=== PATIENT | female | born 1945 | race Caucasian/White ===

== ENCOUNTER 2024-03-13 03:36 | Emergency (ER) | payer MEDICARE, SELFPAY ==
[2024-03-13 03:39] VITALS: BP 167/97; PULSE 73; RESP 15; TEMP 36.7; O2SAT 99; BMI 27.4
--- NOTE | 2024-03-13 03:42 | ECG_ITS ---
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 Measurements Intervals [place] Rate: 71 P: 49 NH: 165 QRS: -24 QRSD: 83 T: 56 QT: 399 QTc: 434 Interpretive Statements SINUS RHYTHM BORDERLINE LEFT AXIS DEVIATION [QRS AXIS < -20] No previous ECG available for comparison Electronically Signed On 03-13-2024 6:59:27 CDT by Yovany Victoria M.D. [id number]
--- NOTE | 2024-03-13 03:49 | CTR_ITS ---
PROCEDURE INFORMATION: Exam: CT Head Without Contrast Exam date and time: 03/13/2024 4:14 AM Age: 78 years old Clinical indication: Altered mental status/memory loss; Additional info: AMS confusion TECHNIQUE: Imaging protocol: Computed tomography of the head without contrast. Radiation optimization: All CT scans at this facility use at least one of these dose optimization techniques: automated exposure control; mA and/or kV adjustment per patient size (includes targeted exams where dose is matched to clinical indication); or iterative reconstruction. COMPARISON: No relevant prior studies available. RADIATION DOSE METRICS: Total DLP (mGy-cm): 1139.76 FINDINGS: Brain: No hemorrhage. Periventricular white matter lucency represents atherosclerotic encephalopathic changes. No mass effect. Cerebral ventricles: No ventriculomegaly. Ventricular prominence proportionate to the degree of atrophy observed. Paranasal sinuses: Visualized sinuses are unremarkable. No fluid levels. Mastoid air cells: Visualized mastoid air cells are well aerated. Bones: Unremarkable. No acute fracture. Soft tissues: Unremarkable. CT/CT head wo con* [id number] IMPRESSION: No acute intracranial abnormality.
--- NOTE | 2024-03-13 03:49 | XRR_ITS ---
PROCEDURE INFORMATION: Exam: XR Chest Exam date and time: 03/13/2024 4:00 AM Age: 78 years old Clinical indication: Other: AMS TECHNIQUE: Imaging protocol: Radiologic exam of the chest. Views: 1 view. COMPARISON: No relevant prior studies available. FINDINGS: Lungs: Unremarkable. No consolidation. Pleural spaces: Unremarkable. No pleural effusion. No pneumothorax. Heart/Mediastinum: Unremarkable. No cardiomegaly. Bones/joints: Unremarkable. XR/XR chest 1V portable [id number] IMPRESSION: No acute findings.
--- NOTE | 2024-03-13 03:51 | ED_ITS ---
HPI - Altered Mental Status 2 General: Chief Complaint: Altered Mental Status Stated Complaint: AMS Time Seen by Provider: 03/13/24 03:41 History of Present Illness: Brought in by EMS for altered mental status. EMS stated that the police had to spike strip her car because she was failing to yield and driving erratic. Patient does not know where she is or where she lives other than she is in the hospital and she [place] [address] near [place]. She says she has 2 sons and they take care of everything. She does not know her address. The year, the month, the season, patient when asked about surgical history raised her shirt and showed what appeared to be an appendectomy scar, she says she does not go to the doctors so therefore she takes no medicines and has no allergies. Review of Systems 2 General: Reports: 10 or more systems reviewed and unremarkable except in HPI and below Physical Exam 2 Const: COMMON NORMALS: no acute distress, average body habitus, healthy appearing, alert and well nourished HENMT: COMMON NORMALS: normocephalic, atraumatic, hearing grossly normal bilaterally, external ears normal, Normal external nose present and moist oral mucous membranes HEAD & SCALP: normocephalic and atraumatic NOSE: Normal external nose present EXTERNAL EAR: Yes external ears normal Neck/C-Spine: COMMON NORMALS: full ROM, no lymphadenopathy, supple, no meningeal signs, no JVD and Thyroid normal THYROID: Thyroid normal Chest: COMMONS NORMALS: normal inspection of the chest and normal palpation of entire chest wall Resp: COMMON NORMALS: normal respiratory effort, No retractions, No use of accessory muscles and clear to auscultation bilaterally AUSCULTATION: clear to auscultation bilaterally Cardio: COMMON NORMALS: no JVD, regular rate, regular rhythm, S1 normal heart sound present, S2 normal heart sound present, No gallops present (Cardio), No clicks present (Cardio) and No murmurs present (Cardio) RATE: regular rate RHYTHM: regular rhythm HEART SOUNDS: S1 normal heart sound present and S2 normal heart sound present GI: COMMON NORMALS: Normal to inspection, nondistended, normoactive bowel sounds present, Soft to palpation, non-tender, No hepatosplenomegaly present and no masses PALPATION: Yes Soft to palpation and Yes No hepatosplenomegaly present Extremity: NARRATIVE EXTREMITY EXAM: Negative lower extremity pitting edema bilaterally Neuro: SENSORIUM/ORIENTATION: Yes alert MENINGEAL SIGNS: Yes no meningeal signs Course 2 Vital Signs: Vital signs: Vital Signs Temperature 98.1 F 03/13/24 03:39 Pulse Rate 77 03/13/24 07:12 Respiratory Rate 15 03/13/24 03:39 Blood Pressure 167/97 03/13/24 07:12 Pulse Oximetry 99 03/13/24 07:12 Oxygen Delivery Me thod Room Air 03/13/24 03:39 MDM - Altered Mental Status Medical Decision Making Patient was in the process of being worked up for altered mental status they essentially everything was negative, family members did come and said they wanted to take her home. Is thought that the patient has more dementia than assumed. Patient be discharged to family. Differential Diagnosis Likely altered mental status Medical Records I reviewed the patient's medical records. Lab Data I reviewed the patient's lab results. 03/13/24 04:05 03/13/24 06:51 Radiology Impressions Chest X-Ray 03/13/24 03:49 IMPRESSION: No acute findings. Head CT 03/13/24 03:49 IMPRESSION: No acute intracranial abnormality. Laboratory Results WBC 4.82 10^3/uL (3.29-11.43) 03/13/24 04:05 RBC 4.06 10^6/uL (3.85-5.65) 03/13/24 04:05 Hgb 12.20 g/dL (11.27-16.99) 03/13/24 04:05 Hct 36.4 % (36-47) 03/13/24 04:05 MCV 89.7 fl (85-98) 03/13/24 04:05 MCH 30.0 pg (27-33) 03/13/24 04:05 MCHC 33.5 g/dL (30-55) 03/13/24 04:05 RDW 13.0 % (12.1-15.1) 03/13/24 04:05 Plt Count 193 10^3/cmm (157-399) 03/13/24 04:05 MPV 10.4 fL (7.4-10.4) 03/13/24 04:05 Neut % (Auto) 72.7 % 03/13/24 04:05 Lymph % (Auto) 20.1 % 03/13/24 04:05 [place] % (Auto) 6.2 % 03/13/24 04:05 Eos % (Auto) 0.2 % 03/13/24 04:05 Baso % (Auto) 0.4 % 03/13/24 04:05 Neut # (Auto) 3.50 10^3/uL (1.8-7.7) 03/13/24 04:05 Lymph # (Auto) 1.0 10^3/uL (0.8-4.8) 03/13/24 04:05 [place] # (Auto) 0.3 10^3/uL (0.2-0.9) 03/13/24 04:05 Eos # (Auto) 0.0 10^3/uL (0.0-0.8) 03/13/24 04:05 Baso # (Auto) 0.0 10^3/uL (0.0-0.1) 03/13/24 04:05 Nucleated RBC % (auto) 0 % 03/13/24 04:05 Nucleated RBCs # 0.0 /100WBC 03/13/24 04:05 Sodium 137 mmol/L (136-145) 03/13/24 06:51 Potassium 4.4 mmol/L (3.5-5.1) 03/13/24 06:51 Chloride 105 mmol/L (98-107) 03/13/24 06:51 Carbon Dioxide 19 mmol/L (22-29) L 03/13/24 06:51 Anion Gap 17.4 (5-19) 03/13/24 06:51 BUN 22 mg/dL (8-23) 03/13/24 06:51 Creatinine 1.7 mg/dL (0.5-0.9) H 03/13/24 06:51 GFR Calculation Not Reportable 03/13/24 06:51 Glucose 100 mg/dL (65-115) 03/13/24 06:51 Calculated Osmolality 287 mOsm/kg (285-295) 03/13/24 06:51 Calcium 8.7 mg/dL (8.5-10.5) 03/13/24 06:51 Magnesium 2.4 mg/dL (1.7-2.3) H 03/13/24 04:05 Total Bilirubin 0.5 mg/dL (0.15-1.2) 03/13/24 04:05 AST 13 U/L (0-32) 03/13/24 04:05 ALT 5 U/L (0-33) 03/13/24 04:05 Alkaline Phosphatase 122 U/L (35-105) H 03/13/24 04:05 C-Reactive Protein < 3.0 mg/L (0.0-4.9) 03/13/24 04:05 Total Protein 7.8 g/dL (6.6-8.7) 03/13/24 04:05 Albumin 4.4 g/dL (3.5-5.2) 03/13/24 04:05 Globulin 3.4 g/dL (1.3-4.6) 03/13/24 04:05 TSH 7.09 uIU/mL (0.27-4.20) H 03/13/24 04:05 Free T4 1.35 ng/dL (0.82-1.77) 03/13/24 04:05 Urine Color Yellow (Yellow) 03/13/24 04:05 Urine Appearance Clear (CLEAR) 03/13/24 04:05 Urine pH 5 (5-7) 03/13/24 04:05 Ur Specific [place] 1.015 (1.005-1.030) 03/13/24 04:05 Urine Protein Neg (Negative) 03/13/24 04:05 Urine Glucose (UA) Norm (Normal) 03/13/24 04:05 Urine Ketones Negative (Negative) 03/13/24 04:05 Urine Blood Neg (Negative) 03/13/24 04:05 Urine Nitrate Negative (Negative) 03/13/24 04:05 Urine Bilirubin Neg (Negative) 03/13/24 04:05 Urine Urobilinogen Neg mg/dL (Negative) 03/13/24 04:05 Ur Leukocyte Esterase Negative (Negative) 03/13/24 04:05 Salicylates 0.3 mg/dL (3-10) L 03/13/24 04:05 Urine Opiates Screen Negative ng/mL (Negative) 03/13/24 04:05 Acetaminophen < 5.0 ug/mL (10-30) L 03/13/24 04:05 Ur Barbiturates Screen Negative ng/mL (Negative) 03/13/24 04:05 Ur Phencyclidine Scrn Negative ng/mL (Negative) 03/13/24 04:05 Ur Amphetamines Screen Negative ng/mL (Negative) 03/13/24 04:05 U Benzodiazepines Scrn Negative ng/mL (Negative) 03/13/24 04:05 Urine Cocaine Screen Negative ng/mL (Negative) 03/13/24 04:05 U Marijuana (THC) Screen Negative ng/mL (Negative) 03/13/24 04:05 Ethyl Alcohol < 10 mg/dL (0-10) 03/13/24 04:05 Influenza Type A Ag negative (Negative) 03/13/24 04:15 Influenza Type B Ag negative (Negative) 03/13/24 04:15 RSV Antigen Negative (Negative) 03/13/24 04:15 SARS-CoV-2 Ag (Rapid) negative (Negative) 03/13/24 04:15 All radiology interpretation(s) finalized by discharge EKG Data EKG 1: I personally reviewed and interpreted this EKG as follows: EKG interpretation date: 03/13/24 EKG interpretation time: 03:42 Prior EKG tracings: not available for review Interpretation: Ventricular rate 71 bpm, NM interval 165, QRS duration 83, QTc of 421, sinus rhythm Discharge Plan Discharge Patient Disposition: Home Clinical Impression: Dementia Qualifiers: Dementia type: unspecified type Dementia severity: moderate Dementia behavioral or psychological symptom: without behavioral, psychotic, or mood disturbance or anxiety Qualified Code(s): F03.B0 - Unspecified dementia, moderate, without behavioral disturbance, psychotic disturbance, mood disturbance, and anxiety Condition: Stable Discharge Orders: Discharge ED (Routine); Ordered 03/13/24 Ordered By: Tyson Huggins Patient Instructions: Dementia (ED), Altered Mental Status (ED) Activity Restrictions/Additional Instructions: Please follow up with your PCP in 7 - 10 days for further evaluation and testing. Coding Level of Care Code ED [employer] Mdm Architect for Bruna Castillo
[2024-03-13 04:09] LABS: Basophils % 0.4 %; Eosinophils % 0.2 %; Hematocrit 36.4 % (36-47); Lymphocytes % 20.1 %; Mean Corpuscular HGB Conc 33.5 g/dL (30-55); Mean Corpuscular Volume 89.7 fl (85-98); Mean Platelet Volume 10.4 fL (7.4-10.4); Monocytes # 0.3 10^3/uL (0.2-0.9); Monocytes % 6.2 %; Neutrophils % 72.7 %; Nucleated Red Blood Cells % 0 %; Platelet Count 193 10^3/cmm (157-399); Red Blood Count 4.06 10^6/uL (3.85-5.65); White Blood Count 4.82 10^3/uL (3.29-11.43)
[2024-03-13 04:29] LABS: Add Urine Microscopic? NO; Charge for UA Resulting for Rev
[2024-03-13 04:31] LABS: Bilirubin Urine Neg (Negative); Blood Urine Neg (Negative); Glucose Urine UA Norm (Normal); Ketones Urine Negative (Negative); Leukocyte Esterase Urine Negative (Negative); Nitrate Urine Negative (Negative); Protein Urine Neg (Negative); Specific Gravity, Urine 1.015 (1.005-1.030); Urine Appearance Clear (CLEAR); Urine Color Yellow (Yellow); Urobilinogen Urine Neg (Negative); pH Urine 5 (5-7)
[2024-03-13 04:34] LABS: Alanine Aminotransferase 5 U/L (0-33); Anion Gap 20.6 (5-19); Aspartate Amino Transferase 13 U/L (0-32); Blood Urea Nitrogen 24 mg/dL (8-23); Calcium 9.5 mg/dL (8.5-10.5); Carbon Dioxide 20 mmol/L (22-29); Chloride 101 mmol/L (98-107); Creatinine Clr Calc Pharmacy 20.8621; Glucose 102 mg/dL (65-115); Magnesium 2.4 mg/dL (1.7-2.3); Osmolality Calculated 288 mOsm/kg (285-295); Potassium 4.6 mmol/L (3.5-5.1); Sodium 137 mmol/L (136-145); Total Bilirubin 0.5 mg/dL (0.15-1.2)
[2024-03-13 04:35] LABS: Acetaminophen < 5.0 ug/mL (10-30); Albumin Level 4.4 g/dL (3.5-5.2); Alcohol Level < 10 mg/dL (0-10); Alkaline Phosphatase 122 U/L (35-105); C Reactive Protein < 3.0 mg/L (0.0-4.9); Globulin 3.4 g/dL (1.3-4.6); Salicylate 0.3 mg/dL (3-10); Total Protein 7.8 g/dL (6.6-8.7)
[2024-03-13 04:49] LABS: Thyroid Stimulating Hormone 7.09 uIU/mL (0.27-4.20)
[2024-03-13] MEDS: sodium chloride 0.9% 1,000 ML 999 ML IV (04:53)
[2024-03-13 04:59] LABS: Influenza A by IFA negative (Negative); Influenza B by IFA negative (Negative); SARS Covid-2 Antigen negative (Negative)
[2024-03-13 05:04] LABS: Amphetamines Screen Urine Negative (Negative); Barbiturates Screen Urine Negative (Negative); Benzodiazepines Screen Urine Negative (Negative); Cocaine Screen Urine Negative (Negative); Opiate Screen Urine Negative (Negative); PCP Screen Urine Negative (Negative); THC Screen Urine Negative (Negative)
[2024-03-13 05:07] LABS: Free T4 Free Thyroxine 1.35 ng/dL (0.82-1.77)
[2024-03-13 05:15] LABS: RSV Transfer Patient (ED) Negative (Negative)
[2024-03-13 07:12] VITALS: BP 167/97; PULSE 77; O2SAT 99
[2024-03-13 07:21] LABS: Anion Gap 17.4 (5-19); Blood Urea Nitrogen 22 mg/dL (8-23); Calcium 8.7 mg/dL (8.5-10.5); Carbon Dioxide 19 mmol/L (22-29); Chloride 105 mmol/L (98-107); Creatinine Clr Calc Pharmacy 25.7708; Glucose 100 mg/dL (65-115); Osmolality Calculated 287 mOsm/kg (285-295); Potassium 4.4 mmol/L (3.5-5.1); Sodium 137 mmol/L (136-145)
== END 2024-03-13 07:21 | disposition home or self-care (01) ==
PROVIDERS: Emergency Provider Emergency Medicine
DX: F03.B0 Unspecified dementia, moderate, without behavioral disturbance, psychotic disturbance, mood disturbance, and anxiety (principal); Z11.52 Encounter for screening for COVID-19
CPT/HCPCS: 70450; 71045; 80048; 80053; 80306; 80307; 81003; 83735; 84439; 84443; 85025; 86140; 87426; 87804; 87899; 93005; 96360; 96361; 99285; J7030